=== PATIENT | male | born 1940 | race Native Hawaiian/Other Pacific Islander ===

== ENCOUNTER 2016-10-07 06:29 | Day surgery (SDC) | payer MEDICARE, MEDICAID ==
[2016-10-07 08:55] VITALS: TEMP 97.1
[2016-10-07] MEDS ORDERED: Propofol 10 mg/ml Inj (20 ML) ONE (09:30)
[2016-10-07 10:50] VITALS: RESP 18; O2SAT 99
[2016-10-07 11:54] VITALS: BP 141/65; PULSE 51
== END 2016-10-07 11:07 | disposition home or self-care (01) ==
LOC: C.ENDO 06:29
PROVIDERS: ATTEND Internal Medicine Gastroenterology
DX: Z12.11 Encounter for screening for malignant neoplasm of colon (principal); D12.2 Benign neoplasm of ascending colon; D12.5 Benign neoplasm of sigmoid colon; K64.8 Other hemorrhoids
CPT/HCPCS: 45380; 45385; 88305; J2704